=== PATIENT | female | born 1985 | race Caucasian/White ===

== ENCOUNTER 2018-05-30 17:11 | Emergency (ER) | payer OTHER ==
[2018-05-30 17:54] VITALS: TEMP 98.1
[2018-05-30] MEDS ORDERED: Sodium Chloride 0.9% Inh Soln (3mL) UD INH STA (18:37)
--- NOTE | 2018-05-30 19:58 | C.PDOC ---
History Of Present Illness 32 year old female presents to the ED for evaluation of dry, non-productive cough which began 3 weeks ago. Patient reports shortness of breath when she coughs. She denies nausea, vomiting. Time Seen by Provider: 05/30/18 18:22 Chief Complaint (Nursing): Cough, Cold, Congestion History Per: Patient History/Exam Limitations: no limitations Onset/Duration Of Symptoms: Other (three weeks ) Current Symptoms Are (Timing): Still Present Additional History Per: Patient Past Medical History Reviewed: Historical Data, Nursing Documentation, Vital Signs Vital Signs: Last Vital Signs Temp 98.1 F 05/30/18 17:25 Pulse 88 05/30/18 17:25 Resp 18 05/30/18 17:25 BP 125/87 05/30/18 17:25 Pulse Ox 99 05/30/18 17:25 - Medical History PMH: No Chronic Diseases Surgical History: No Surg Hx Family History: States: Unknown Family Hx - Social History Hx Alcohol Use: No Hx Substance Use: No - Immunization History Hx Tetanus Toxoid Vaccination: No Hx Influenza Vaccination: No Hx Pneumococcal Vaccination: No Review Of Systems Constitutional: Negative for: Fever, Chills Cardiovascular: Negative for: Chest Pain, Palpitations Respiratory: Positive for: Cough. Negative for: Shortness of Breath, Sputum Gastrointestinal: Negative for: Nausea, Vomiting Skin: Negative for: Rash, Lesions, Jaundice, Bruising Physical Exam - Physical Exam Appears: Non-toxic, No Acute Distress Skin: Normal Color, Warm, Dry Head: Atraumatic, Normacephalic Eye(s): bilateral: Normal Inspection Oral Mucosa: Moist Neck: Supple Chest: Symmetrical, No Deformity, No Tenderness Cardiovascular: Rhythm Regular, No Murmur Respiratory: Normal Breath Sounds, No Rales, No Rhonchi, No Wheezing Extremity: Normal ROM, Capillary Refill (less than 2 seconds ) Neurological/Psych: Normal Speech, Normal Cognition ED Course And Treatment O2 Sat by Pulse Oximetry: 99 (on RA) Pulse Ox Interpretation: Normal Medical Decision Making Medical Decision Making: Progress: CXR ordered and reviewed. Sodium chloride INH administered. cxr wet read neg, d/c home with tessalon. recommend humidifier Disposition Counseled Patient/Family Regarding: Studies Performed, Diagnosis, Need For Followup, Rx Given - Disposition Referrals: [facility] [Outside] Disposition: HOME/ ROUTINE Disposition Time: 19:56 Condition: GOOD Additional Instructions: Drink increased fluids, stay well hydrated. Recommend humidifier; Follow up in medical clinic- call for appointment. 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 - Scribe Statement The provider has reviewed the documentation as recorded by the Scribe (Angie Mercedes) All medical record entries made by the Scribe were at my direction and personally dictated by me. I have reviewed the chart and agree that the record accurately reflects my personal performance of the history, physical exam, medical decision making, and the department course for this patient. I have also personally directed, reviewed, and agree with the discharge instructions and disposition.
[2018-05-30 20:06] VITALS: BP 129/84; PULSE 78; RESP 16
[2018-05-30 20:59] VITALS: O2SAT 99
--- NOTE | 2018-05-31 08:47 | RAD ---
Chest x-ray two views HISTORY: Cough. COMPARISON: 08/11/2017 Findings: Mild venous congestion. Heart size within normal limits. Bibasilar breast and nipple shadows. Impression: Mild venous congestion.
== END 2018-05-30 20:04 | disposition home or self-care (01) ==
LOC: C.ER 17:11
DX: J06.9 Acute upper respiratory infection, unspecified (principal)

== ENCOUNTER 2018-06-16 17:39 | Emergency (ER) | payer OTHER | END 2018-06-16 21:01 | disposition home or self-care (01) | LOC: C.ER 17:39 ==

== ENCOUNTER 2018-06-22 09:49 | Outpatient (CLI) | payer OTHER | END 2018-06-22 09:50 | disposition home or self-care (01) | LOC: C.LAB 09:49 | DX: N39.0 Urinary tract infection, site not specified (principal) ==

== ENCOUNTER 2018-08-15 00:23 | Emergency (ER) | payer OTHER ==
--- NOTE | 2018-08-15 01:04 | C.PDOC ---
History Of Present Illness Patient presents to the ED c/o " I feel something stuck in my chest". Patient reports she ate some [place] fries couple of hours ago. Patient states pain worsens with deep breathing and movement. Patient able to speak in complete sent ences and swallow. Patient denies fever, chills, headache, SOB, palpitations,rash, recent travel, sick contacts, nausea, vomit, diarrhea. Time Seen by Provider: 08/15/18 01:03 Chief Complaint (Nursing): Medical Clearance History Per: Patient History/Exam Limitations: no limitations Onset/Duration Of Symptoms: Days Current Symptoms Are (Timing): Still Present Recent travel outside of the [place]: No Additional History Per: Patient Past Medical History Reviewed: Historical Data, Nursing Documentation, Vital Signs Vital Signs: Last Vital Signs Temp 97.6 F 08/15/18 00:39 Pulse 94 H 08/15/18 00:39 Resp 16 08/15/18 00:39 BP 121/82 08/15/18 00:39 Pulse Ox 99 08/15/18 00:39 Primary Care Provider: FAMILY PROVIDER,NO - Medical History PMH: No Chronic Diseases Surgical History: Appendectomy Family History: States: No Known Family Hx - Social History Hx Alcohol Use: No Hx Substance Use: No - Immunization History Hx Tetanus Toxoid Vaccination: No Hx Influenza Vaccination: No Hx Pneumococcal Vaccination: No Review Of Systems Constitutional: Negative for: Fever, Chills Cardiovascular: Positive for: Chest Pain. Negative for: Palpitations Respiratory: Negative for: Cough, Shortness of Breath Gastrointestinal: Negative for: Nausea, Vomiting, Abdominal Pain Skin: Negative for: Rash Neurological: Negative for: Weakness, Numbness, Headache Physical Exam - Physical Exam Appears: Non-toxic, No Acute Distress Skin: Warm, Dry Head: Normacephalic Eye(s): bilateral: Normal Inspection Neck: Supple Chest: Symmetrical, Tenderness (mid sternal reproducible to palpation) Cardiovascular: Rhythm Regular Respiratory: No Rales, No Rhonchi, No Wheezing Gastrointestinal/Abdominal: Soft, No Distention Extremity: Bilateral: Atraumatic, Normal Color And Temperature, Normal ROM Neurological/Psych: Oriented x3, Normal Speech, Normal Cognition Gait: Steady ED Course And Treatment - Laboratory Results Result Diagrams: 08/15/18 01:43 08/15/18 01:43 ECG: Interpreted By Me, Viewed By Me ECG Rhythm: Sinus Rhythm (71), Nonspecific Changes O2 Sat by Pulse Oximetry: 99 (ON RA) Pulse Ox Interpretation: Normal - Radiology CXR: Interpreted by Me, Viewed By Me CXR Interpretation: No: Infiltrates, Fracture, Pnemothorax Progress Note: Plan: - EKG. - CXR. - Labs. - IV fluids. - UA. - VBG Reevaluation Time: 03:47 Reassessment Condition: Improved Medical Decision Making Medical Decision Making: .Upon provider reevaluation patient is feeling better, is medically stable, and requires no further treatment in the ED at this time. Patient will be discharged home with Rx for protonix. Counseling was provided and all questions were answered regarding diagnosis and need for follow up with the referred clinic. There is agreement to discharge plan. Return if symptoms persist or worsen. Disposition Counseled Patient/Family Regarding: Studies Performed, Diagnosis, Need For Followup, Rx Given - Disposition Referrals: [facility] [Outside] [facility] [Outside] Disposition: HOME/ ROUTINE Disposition Time: 01:04 Condition: FAIR Additional Instructions: Please return if symptoms recur Prescriptions: Pantoprazole Sodium [Protonix] 40 mg PO DAILY #14 ect Instructions: Acid Reflux (Gastroesophageal Reflux Disease), Adult (DC) Forms: [employer] (Armenian), Accompanied To ED By: - Clinical Impression Clinical Impression: Medical assessment, GERD (gastroesophageal reflux disease) - Scribe Statement The provider has reviewed the documentation as recorded by the Scribe Jose Ferrell All medical record entries made by the Scribe were at my direction and personally dictated by me. I have reviewed the chart and agree that the record accurately reflects my personal performance of the history, physical exam, medical decision making, and the department course for this patient. I have also personally directed, reviewed, and agree with the discharge instructions and disposition.
[2018-08-15] MEDS ORDERED: Sodium Chloride 0.9% 1,000 ML IV ONE (01:23)
[2018-08-15 01:48] LABS: BASO % 0.6 % (0.0-2.0); EOS # 0.1 K/uL (0.0-0.7); EOS % 1.2 % (0.0-4.0); HEMOGLOBIN 12.5 g/dL (11.0-16.0); LYMPH # 1.9 K/uL (1.0-4.3); LYMPH % 30.5 % (20.0-40.0); MEAN CELL VOLUME 65.2 fL (81.0-99.0); MEAN CORPUSCULAR HEMOGLOBIN 20.9 pg (27.0-31.0); MEAN CORPUSCULAR HGB CONC 32.1 g/dL (33.0-37.0); MEAN PLATELET VOLUME 9.1 fL (7.2-11.7); MONO # 0.5 K/uL (0.0-0.8); MONO % 7.8 % (0.0-10.0); NEUT # 3.8 K/uL (1.8-7.0); NEUT % 59.9 % (50.0-75.0); RBC 5.99 Mil/uL (3.80-5.20); RED CELL DISTRIBUTION WIDTH 23.3 % (11.5-14.5); WHITE BLOOD COUNT 6.4 K/uL (4.8-10.8)
[2018-08-15 01:52] LABS: VENOUS BLOOD GAS PCO2 48 mmHg (40-60); VENOUS BLOOD GAS PO2 23 mm/Hg (30-55); VENOUS BLOOD PH 7.36 (7.32-7.43)
[2018-08-15 01:52] LABS: INR 1.1; PROTHROMBIN TIME 11.7 SECONDS (9.7-12.2); SQUAMOUS EPITHIAL < 1 /hpf (0-5); URINE BILIRUBIN NEGATIVE (NEGATIVE); URINE BLOOD NEGATIVE (NEGATIVE); URINE CLARITY Hazy (Clear); URINE COLOR Straw (YELLOW); URINE GLUCOSE (UA) NORMAL (Normal); URINE LEUKOCYTE ESTERASE NEG Leu/uL (Negative); URINE PROTEIN NEGATIVE (NEGATIVE); URINE UROBILINOGEN NORMAL mg/dL (0.2-1.0)
[2018-08-15 01:53] LABS: HCG,QUALITATIVE URINE NEGATIVE (NEGATIVE)
[2018-08-15 01:56] LABS: ALB/GLOB RATIO 1.6 (1.0-2.1); ALBUMIN 4.8 g/dL (3.5-5.0); ALT/SGPT 29 U/L (9-52); AST/SGOT 24 U/L (14-36); BLOOD UREA NITROGEN 14 mg/dL (7-17); CALCIUM 9.7 mg/dl (8.6-10.4); GFR NON-AFRICAN AMERICAN > 60; LIPASE 83 U/L (23-300)
[2018-08-15 04:24] VITALS: BP 126/70; PULSE 75; RESP 20; TEMP 98.1; O2SAT 100
--- NOTE | 2018-08-15 11:31 | RAD ---
HISTORY: cp COMPARISON: Chest x-ray performed 06/16/18 TECHNIQUE: Chest PA and lateral, 2 views FINDINGS: LUNGS: No focal consolidation. Please note that chest x-ray has limited sensitivity for the detection of pulmonary masses. PLEURA: No significant pleural effusion identified. No definite pneumothorax . CARDIOVASCULAR: The cardiomediastinal silhouette appears within normal limits of size. No atherosclerotic calcification present. OSSEOUS STRUCTURES: No acute osseous abnormality identified. VISUALIZED UPPER ABDOMEN: Unremarkable. OTHER FINDINGS: None. IMPRESSION: No focal consolidation.
--- NOTE | 2018-08-17 00:57 | CARD ---
APPROVED REPORT Date of service: 08/15/2018 EKG Measurement Heart [id number] <Conclusion> Normal sinus rhythm Normal ECG
== END 2018-08-15 04:24 | disposition home or self-care (01) ==
LOC: C.ER 00:23
DX: K21.9 Gastro-esophageal reflux disease without esophagitis (principal)
CPT/HCPCS: 71046; 80053; 81001; 82803; 83690; 83735; 84703; 85025; 85610; 85730; 96360; 99282; J7030